=== PATIENT | male | born 1950 | race African-American/Black ===

== ENCOUNTER 2018-12-26 13:34 | Inpatient (IN) | payer MEDICARE, OTHER ==
[~2018-12-26] VITALS: Ht 172.7 cm; Wt 93.4 kg
[2018-12-26] MEDS ORDERED: ASPIRIN 81MG TABLET PO ONE (16:30)
[2018-12-26] MEDS ORDERED: LEVETIRACETAM 500MG TABLET PO SCH (16:30)
[2018-12-26] MEDS ORDERED: CARVEDILOL 6.25 MG TABLET PO SCH (17:00)
[2018-12-26 17:16] LABS: CHLORIDE 105 mEq/L (98-107)
[2018-12-26 17:22] LABS: PHOSPHORUS 3.4 mg/dL (2.5-4.9)
[2018-12-26 17:27] LABS: PROTHROMBIN TIME 10.3 sec (9.1-11.1)
[2018-12-26] MEDS ORDERED: ATORVASTATIN CALCIUM 40MG TABLET PO SCH (21:00)
[2018-12-26 22:00] VITALS: BP 120/86
[2018-12-26 22:44] VITALS: BP 120/86
[2018-12-27] VITALS: BP 111/65
[2018-12-27 04:00] VITALS: BP 133/84
[2018-12-27 07:18] LABS: BASOPHILS % 0.7 % (0.0-2.0); HEMATOCRIT. 38.6 % (42.0-52.0); HEMOGLOBIN. 12.5 g/dL (14.0-18.0); LYMPHOCYTES % 36.9 % (20.0-50.0); MEAN CORPUSCULAR HEMOGLOBIN 30.5 pg (28.0-32.0); MEAN CORPUSCULAR VOLUME 93.9 fL (80.0-94.0); MEAN PLATELET VOLUME 9.3 fl (7.4-10.4); MONOCYTES % 12.3 % (2.0-8.0); NEUTROPHILS % 48.1 % (40.0-76.0); PLATELET 196 x1000/uL (130-400); RED BLOOD CELL COUNT 4.12 mill/uL (4.7-6.1); RED CELL DISTRIBUTION WIDTH 15.8 % (11.6-14.6)
[2018-12-27 07:24] LABS: CHLORIDE 105 mEq/L (98-107)
[2018-12-27 08:00] VITALS: BP 128/84
[2018-12-27] MEDS ORDERED: ASPIRIN 325MG EC TABLET PO SCH (09:00)
[2018-12-27] MEDS ORDERED: ASPIRIN 81MG TABLET PO SCH (09:00)
[2018-12-27] MEDS ORDERED: LISINOPRIL 40MG TABLET PO SCH (09:00)
[2018-12-27] MEDS ORDERED: ENOXAPARIN 30MG/0.3ML SYR SUBCUT SCH (09:30)
[2018-12-27] MEDS ORDERED: LEVETIRACETAM 500MG TABLET PO SCH (11:30)
[2018-12-27 12:00] VITALS: BP 108/59
[2018-12-27] MEDS ORDERED: MAGNESIUM OXIDE 400MG TABLET PO SCH (14:00)
[2018-12-27 14:44] VITALS: BP 108/59
== END 2018-12-27 16:05 | disposition home or self-care (01) | DRG 309 ==
LOC: ER 13:54 → 5WST 19:12 → EDBEDREQ 19:15 → EDBEDREQTM 19:15 → ENRESERV 20:03
PROVIDERS: ADMIT Internal Medicine; ATTEND Internal Medicine
DX: I47.2 Ventricular tachycardia (principal); I42.9 Cardiomyopathy, unspecified; E78.5 Hyperlipidemia, unspecified; I11.9 Hypertensive heart disease without heart failure; G40.909 Epilepsy, unspecified, not intractable, without status epilepticus; I25.10 Atherosclerotic heart disease of native coronary artery without angina pectoris; Z98.61 Coronary angioplasty status; Z87.891 Personal history of nicotine dependence; Z86.73 Personal history of transient ischemic attack (TIA), and cerebral infarction without residual deficits; Z83.3 Family history of diabetes mellitus; Z82.49 Family history of ischemic heart disease and other diseases of the circulatory system; Z88.5 Allergy status to narcotic agent
CPT/HCPCS: 36415; 71045; 80048; 83735; 84100; 84443; 84484; 93005; 93306; 99285; J1650